=== PATIENT | female | born 1995 | race Caucasian/White ===

== ENCOUNTER 2018-10-03 13:50 | Emergency (ER) | payer OTHER ==
[~2018-10-03] VITALS: Ht 154.9 cm; Wt 61.2 kg
== END 2018-10-03 14:55 | disposition home or self-care (01) ==
LOC: ER 13:50
DX: S61.241A Puncture wound with foreign body of left index finger without damage to nail, initial encounter (principal); W46.0XXA Contact with hypodermic needle, initial encounter; Y93.89 Activity, other specified; Y92.69 Other specified industrial and construction area as the place of occurrence of the external cause; Y99.8 Other external cause status

== ENCOUNTER 2019-05-04 08:01 | Emergency (ER) | payer OTHER ==
[~2019-05-04] VITALS: Ht 154.9 cm; Wt 63.5 kg
[2019-05-04] MEDS ORDERED: MEDROLPACK PO (09:23)
[2019-05-04] MEDS ORDERED: ZYRTEC10 MG PO (09:23)
== END 2019-05-04 14:18 | disposition home or self-care (01) ==
LOC: ER 08:01
DX: R21 Rash and other nonspecific skin eruption (principal)

== ENCOUNTER → 2019-05-17 13:50 | Outpatient (CLI) | payer OTHER ==
[~2019-05-17 13:50] MED LIST: MEDROLPACK PO; ZYRTEC10 MG PO
== END | disposition home or self-care (01) ==
LOC: LAB 13:50
DX: E78.49 Other hyperlipidemia (principal); E55.9 Vitamin D deficiency, unspecified; R42 Dizziness and giddiness; Z00.00 Encounter for general adult medical examination without abnormal findings; R05 Cough

== ENCOUNTER 2022-03-04 14:34 | Outpatient (CLI) | payer OTHER | END 2022-03-04 14:42 | disposition home or self-care (01) | LOC: RAD 14:34 | PROVIDERS: ATTEND Orthopaedic Surgery | DX: M25.561 Pain in right knee (principal) ==

== ENCOUNTER 2022-10-20 04:21 | Emergency (ER) | payer OTHER ==
[~2022-10-20] VITALS: Ht 154.9 cm; Wt 65.3 kg
[2022-10-20] MEDS ORDERED: ZOLOFT25 MG (04:36)
== END 2022-10-20 15:55 | disposition home or self-care (01) ==
LOC: ER 04:21
DX: O26.899 Other specified pregnancy related conditions, unspecified trimester (principal); R10.9 Unspecified abdominal pain; Z34.90 Encounter for supervision of normal pregnancy, unspecified, unspecified trimester

== ENCOUNTER 2023-06-07 09:39 | Outpatient (CLI) | payer OTHER ==
[~2023-06-07 09:39] MED LIST changes: +ZOLOFT25 MG
== END 2023-06-07 12:16 | disposition home or self-care (01) ==
LOC: NST 09:39
PROVIDERS: ATTEND Obstetrics & Gynecology Maternal & Fetal Medicine
DX: Z34.83 Encounter for supervision of other normal pregnancy, third trimester (principal)

== ENCOUNTER 2023-06-07 13:07 | Inpatient (IN) | payer OTHER ==
[~2023-06-07] VITALS: Ht 154.9 cm; Wt 3.2 kg
[2023-06-15 18:13] LABS: HEMATOCRIT 35.3 % (36.0-45.00); HEMOGLOBIN 12.2 g/dL (12.0-15.00); MEAN CORPUSCULAR HEMOGLOBIN 30.8 pg (27.00-32.0); MEAN CORPUSCULAR HGB CONC 34.6 g/dl (32.0-36.0); PLATELET COUNT 268 K/uL (150-450); RED BLOOD COUNT 3.97 M/uL (4.00-6.00); RED CELL DISTRIBUTION WIDTH 14.4 % (11.5-14.5)
[2023-06-15] MEDS ORDERED: PRENATA CHEWAB1 EACH PO (18:16)
[2023-06-15] MEDS ORDERED: [UNRECOGNIZED DRUG - OTHER] PO (18:17)
[2023-06-15 18:32] LABS: INR < 0.93; PARTIAL THROMBOPLASTIN TIME 28.2 SECONDS (22.0-34.0); PROTHROMBIN TIME 9.8 SECONDS (9.0-11.5)
[2023-06-15 18:38] LABS: ALBUMIN 2.8 gm/dL (3.4-5.0); BILIRUBIN TOTAL 0.53 mg/dL (0.3-1.2); CALCIUM 9.2 mg/dL (8.5-10.1); CREATININE SERUM 0.5 mg/dL (0.55-1.02); GFR 145.87; GLOBULINA 3.7 G/DL (2.4-3.5); TOTAL PROTEIN 6.5 gm/dL (6.4-8.2)
[2023-06-17 06:14] LABS: HEMATOCRIT 28.5 % (36.0-45.00); HEMOGLOBIN 10.2 g/dL (12.0-15.00); MEAN CELL VOLUME 90.1 fL (80.00-100.00); MEAN CORPUSCULAR HEMOGLOBIN 32.1 pg (27.00-32.0); MEAN CORPUSCULAR HGB CONC 35.7 g/dl (32.0-36.0); PLATELET COUNT 196 K/uL (150-450); RED BLOOD COUNT 3.16 M/uL (4.00-6.00); RED CELL DISTRIBUTION WIDTH 13.9 % (11.5-14.5)
== END 2023-06-18 14:49 | disposition home or self-care (01) | DRG 788 ==
LOC: LDR 06-15 16:25 → O/R 06-16 15:14 → OB/GYN 06-16 16:23
PROVIDERS: Obstetrics & Gynecology; Obstetrics & Gynecology Gynecology; Obstetrics & Gynecology Maternal & Fetal Medicine; ADMIT Obstetrics & Gynecology; ATTEND Obstetrics & Gynecology
PROC: 3E0P7VZ Introduction of Hormone into Female Reproductive, Via Natural or Artificial Opening (ICD-10-PCS; 2023-06-15)
PROC: 4A1HXCZ Monitoring of Products of Conception, Cardiac Rate, External Approach (ICD-10-PCS; 2023-06-15)
PROC: 3E033VJ Introduction of Other Hormone into Peripheral Vein, Percutaneous Approach (ICD-10-PCS; 2023-06-16)
PROC: 10D00Z1 Extraction of Products of Conception, Low, Open Approach (ICD-10-PCS; principal; 2023-06-16 12:00)
DX: O33.8 Maternal care for disproportion of other origin (principal); Z3A.39 39 weeks gestation of pregnancy; Z37.0 Single live birth; Z20.822 Contact with and (suspected) exposure to COVID-19

== ENCOUNTER 2025-03-21 10:00 | Day surgery (SDC) | payer OTHER ==
[2025-03-16 10:05] LABS: URINE APPEARANCE Clear; URINE BILIRRUBIN Negative (NEGATIVE); URINE BLOOD Negative; URINE COLOR Yellow; URINE GLUCOSE Negative (NEGATIVE); URINE KETONE Negative (NEGATIVE); URINE LEUKOCYTE Negative; URINE NITRATE Negative; URINE PROTEIN Negative (NEGATIVE); URINE UROBILINOGEN 0.2 E.U./dl
[2025-03-16 10:11] LABS: URINE BACTERIA 37.1 uL (0.0-1933); URINE EPITHELIAL CELLS 4.3 uL (0.0-38.8)
[2025-03-16 10:12] LABS: URINE CAST 0.00 uL (0.0-1.40); URINE RBC 1.0 uL (0.0-20.8); URINE WBC 1.6 uL (0.0-23.2)
[2025-03-16 10:33] LABS: BASO % 0.4 % (0.1-1.2); EOS # 0.10 (0.04-0.54); EOS % 2.1 % (0.7-7.0); LYMPH # 1.56 (1.18-3.74); LYMPH % 32.9 % (19.3-53.1); MEAN PLATELET VOLUME 11.30 fl (9.4-12.4); MONO # 0.27 (0.24-0.82); MONO % 5.7 % (4.7-12.5); NEUT # 2.79 (1.56-6.13); NEUT % 58.9 % (34.0-71.1); RED CELL DISTRIBUTION WIDTH 12.7 % (11.6-14.4)
[2025-03-16 10:35] LABS: INR 1.01
[2025-03-16 10:48] LABS: ALT/SGPT 31.0 U/L (12-78); AST/SGOT 35.0 U/L (15-37); BILIRUBIN TOTAL 0.82 mg/dL (0.3-1.2); BUN CREA RATIO 17.0 (7.0-25.0); CREATININE SERUM 0.58 mg/dL (0.55-1.02); GFR 121.25; GLOBULINA 3.0 G/DL (2.4-3.5); GLUCOSE FASTING 60.0 mg/dL (65-100); OSMOLALITY SERUM 276.0 MOSM/KG (275-295)
[~2025-03-21] VITALS: Ht 154.9 cm; Wt 59.0 kg
[~2025-03-21 10:00] MED LIST changes: +PRENATA CHEWAB1 EACH PO; +ROSUVASTATIN CA20 MG PO; +[UNRECOGNIZED DRUG - OTHER] PO
[2025-03-21] MEDS ORDERED: CHLORHEXIDINE GLUCONATE 120 ML BOTTLE TOP ONE (13:36)
[2025-03-21] MEDS ORDERED: SUGAMMADEX SODIUM 200 MG/2 ML VIAL IV ONE (14:40)
[2025-03-21] MEDS ORDERED: MORPHINE SULFATE 4 MG/ML VIAL IV ONE (15:20)
[2025-03-21] MEDS ORDERED: MORPHINE SULFATE 4 MG/ML CARTRIDGE IV PRN (15:45)
[2025-03-21] MEDS ORDERED: PROMETHAZINE HCL 50 MG/ML AMPUL IM ONE (15:45)
== END 2025-03-21 16:45 | disposition home or self-care (01) ==
LOC: CIR.AMB 10:00 → OB/GYN 10:00 → O/R 13:15 → CIR.AMB 16:45 → O/R 16:45
PROVIDERS: ATTEND Obstetrics & Gynecology Gynecology
DX: Z30.2 Encounter for sterilization (principal); N73.6 Female pelvic peritoneal adhesions (postinfective); Z91.041 Radiographic dye allergy status